=== PATIENT | male | born 1955 | race Caucasian/White ===

== ENCOUNTER 2018-05-21 13:04 | Day surgery (SDC) | payer OTHER ==
[2018-05-19 12:56] VITALS: BMI 26.6
[2018-05-21] MEDS ORDERED: LIDOCAINE HCL 2% (20ML MULTI-DOSE VIAL) NR ONE (14:30)
[2018-05-21] MEDS ORDERED: MIDAZOLAM HCL 2 MG/2 ML SINGLE DOSE VIAL ONE (15:07)
[2018-05-21] MEDS ORDERED: PROPOFOL 20 ML ONE (15:11)
[2018-05-21 17:06] VITALS: TEMP 97.7
[2018-05-21 17:09] VITALS: BP 136/82; PULSE 53
--- NOTE | 2018-05-22 09:18 | OP ---
DATE OF OPERATION: 05/21/2018 PREOPERATIVE DIAGNOSIS: Left carpal tunnel syndrome. POSTOPERATIVE DIAGNOSIS: Left carpal tunnel syndrome. OPERATIVE PROCEDURE: Left carpal tunnel release. ANESTHESIA: Local with sedation. COMPLICATIONS: None. ESTIMATED BLOOD LOSS: Minimal. INDICATION FOR PROCEDURE: The patient is a 62-year-old with the above finding indicated for operative treatment. Risks, benefits, alternatives were discussed with the patient at length. Proper informed consent was obtained. PROCEDURE: After proper identification of the patient and correct operative site patient brought to the operating room, placed supine on the operating table with prominences well padded. Sedation was given by the anesthesiologist. Local anesthesia was given with 2% lidocaine. Left upper extremity was prepped and draped in the usual sterile fashion. A well-padded tourniquet was placed over the sterile prep. Esmarch bandage used to exsanguinate the left upper extremity. Tourniquet was inflated to 250 mmHg. Longitudinal incision was made in the proximal aspect of the palm. Incision taken sharply through the skin, blunt and sharp dissection through the subcutaneous tissues. Palmar fascia was divided longitudinally. Transverse carpal ligament along with the distal 4 cm of antebrachial fascia were divided longitudinally under direct visualization with loupe magnification. This provided complete release of the median nerve at the wrist. Wound was irrigated with saline and repaired with a 5-0 nylon suture. Sterile dressings were applied. Patient was brought to recovery in stable condition. He tolerated procedure well. CAROLINA NIEVES M.D. [id number]
== END 2018-05-21 17:00 | disposition home or self-care (01) ==
LOC: FASU 13:04
PROVIDERS: ATTEND Orthopaedic Surgery Hand Surgery
PROC: 01N50ZZ Release Median Nerve, Open Approach (ICD-10-PCS; principal; 2018-05-21 15:00)
DX: G56.02 Carpal tunnel syndrome, left upper limb (principal)
CPT/HCPCS: 82962; 94760

== ENCOUNTER 2019-05-20 11:40 | Day surgery (SDC) | payer OTHER ==
[2019-05-20 08:50] VITALS: BMI 25.7
[2019-05-20] MEDS ORDERED: fentaNYL CITRATE 250 MCG/5 ML VIAL ONE (13:28)
[2019-05-20] MEDS ORDERED: SUCCINYLCHOLINE CHLORIDE 200 MG/10 ML SYRINGE ONE (13:28)
[2019-05-20] MEDS ORDERED: MIDAZOLAM HCL 2 MG/2 ML SINGLE DOSE VIAL ONE (13:29)
[2019-05-20] MEDS ORDERED: LIDOCAINE HCL/PF 2% SDV 5ML VIAL ONE (14:05)
[2019-05-20] MEDS ORDERED: ceFAZolin SODIUM 1 GM VIAL ONE (14:12)
[2019-05-20] MEDS ORDERED: ceFAZolin SODIUM 1 GM VIAL IVPB ONE (14:15)
[2019-05-20] MEDS ORDERED: LIDOCAINE HCL 1%, 10 MG/ML (20ML VIAL) PNB ONE (14:35)
[2019-05-20] MEDS ORDERED: BACITRACIN 15 GM TUBE TOPICAL OINTMENT ONE (14:43)
[2019-05-20 19:49] VITALS: BP 138/72; PULSE 81; TEMP 97.9
--- NOTE | 2019-05-20 21:12 | OP ---
DATE OF OPERATION: 05/20/2019 SURGEON: Mirna Saul MD ANESTHESIA: General. PREOPERATIVE DIAGNOSIS: Gangrene of the tip of the penis. POSTOPERATIVE DIAGNOSIS: Gangrene of the tip of the penis. PROCEDURE: Excision of the gangrenous tissue and partial removal of the tip of the penis. FINDINGS: Gangrene at the tip of the penis noted, especially on the left side of the glans penis, essentially surrounding the urethral meatus. DESCRIPTION OF PROCEDURE: Patient, in supine position under general anesthesia, was prepped and draped in the usual manner. Using a 16 catheter, Suazo was placed and the penile lesion was excised and the base electrocoagulated. Multiple bleeders were cauterized, and the urethral tissue was re-anastomosed to the tip of the glans penis, trying to bring as normal an appearance of the glans penis as possible. A bacitracin and Vaseline gauze dressing applied. Patient tolerated the procedure well, left the operating room in satisfactory condition. Kevin JULIAN/[id number]
--- NOTE | 2019-05-22 16:36 | PATH ---
Surgical Pathology Report Patient Name: MARLO PANG [facility]. Rec. #: [id number] /Age/Gender: 1955 (Age: 63) / M Account: [id number] Location: [facility] SURGICAL Taken: 05/20/2019 Received: 05/21/2019 Reported: 05/22/2019 Physicians: Michi Johnson M.D. Specimen(s) Received TIP OF PENIS Clinical History Disorder of penis Final Diagnosis TIP OF PENIS, EXCISION: SQUAMOUS MUCOSA WITH MODERATE CHRONIC FOCAL ACUTE INFLAMMATION. Electronically Signed Basia Irvin M.D. Gross Description Received in formalin labeled "tip of penis," is a 0.5 x 0.1 cm meyer, elliptical, unoriented portion of skin excised to a depth of 0.2 cm. The epidermal surface is grossly unremarkable. The specimen is submitted in toto in one cassette. /05/21/201905/21/2019
== END 2019-05-20 19:35 | disposition home or self-care (01) ==
LOC: JASU-SURG 11:40
PROVIDERS: ATTEND Urology
PROC: 0VBS0ZZ Excision of Penis, Open Approach (ICD-10-PCS; principal; 2019-05-20 13:30)
DX: N48.29 Other inflammatory disorders of penis (principal); I10 Essential (primary) hypertension; E11.9 Type 2 diabetes mellitus without complications
CPT/HCPCS: 36415; 84132; 88304-TC; 94760